=== PATIENT | male | born 1955 | race Caucasian/White ===

== ENCOUNTER 2018-04-04 10:43 | Day surgery (SDC) | payer OTHER ==
[2018-04-04] MEDS ORDERED: MIDAZOLAM 1 MG/ML 2 ML INJ (14:17)
[2018-04-04] MEDS ORDERED: FENTAnyl 50 MCG/ML VIAL (14:17)
== END 2018-04-04 17:30 | disposition home or self-care (01) ==
LOC: GIL 10:43
DX: Z12.11 Encounter for screening for malignant neoplasm of colon (principal); K57.90 Diverticulosis of intestine, part unspecified, without perforation or abscess without bleeding; K64.8 Other hemorrhoids; E11.9 Type 2 diabetes mellitus without complications; I10 Essential (primary) hypertension
CPT/HCPCS: 45378; 82962